=== PATIENT | female | born 1975 | race Caucasian/White ===

== ENCOUNTER → 2016-08-16 | Outpatient (CLI) | payer OTHER ==
[~2016-08-16] VITALS: Ht 165.1 cm; Wt 75.8 kg
[~2016-08-16] MED LIST: ANXIETY MED; ATARAX,VISTARIL50 MG PO; BACTRIM,SEPT1 TABLET PO; CLEOCIN HCL150 MG PO; CLINDAMYCIN; NOHOMEMEDS; NORCO 5/3251 TABLET PO; PEPCID20 MG PO; PREDNISONE; PREDNISONE20 MG PO; PROMETHAZINE HC25 M1 PO; ZOFRAN ODT4 MG PO
[2016-08-16 11:38] VITALS: BP 134/69
== END | disposition home or self-care (01) ==
LOC: IVINF 11:26
DX: O36.0990 Maternal care for other rhesus isoimmunization, unspecified trimester, not applicable or unspecified (principal); Z3A.00 Weeks of gestation of pregnancy not specified; Z88.0 Allergy status to penicillin; Z88.3 Allergy status to other anti-infective agents
CPT/HCPCS: 96372; J2790

== ENCOUNTER 2016-10-02 08:09 | Inpatient (IN) | payer OTHER ==
[~2016-10-02] VITALS: Ht 165.1 cm; Wt 82.7 kg
[2016-10-02] VITALS (17 sets, daily range): BP systolic 108–139; BP diastolic 54–83
[2016-10-02 10:02] LABS: EOSINOPHIL (%) 2.2 % (0-5); EOSINOPHIL COUNT 0.3 K/uL (0-0.3); HEMATOCRIT 38.7 % (36.0-46.0); IMMATURE GRANULOCYTE (%) 0.8 % (0.0-0.7); LYMPHOCYTE COUNT 2.4 K/uL (1.0-2.8); MCH 33.5 PG (29.0-34.0); MCHC 34.1 G/DL (30.0-36.0); MCV 98.2 FL (83-99); MEAN PLAT.VOLUME 11.6 uM^3 (9.5-12.4); MONOCYTE (%) 6.2 % (3-12); MONOCYTE COUNT 0.8 K/uL (0-0.8); NEUTROPHIL (%) 71.9 % (45-76); NEUTROPHIL COUNT 9.3 K/uL (1.8-6.4); PLATELET COUNT 137 K/uL (156-360); RBC DIS.WIDTH-CV 13.1 % (11.8-14.6); RBC DIS.WIDTH-SD 45.3 % (39-53); RED BLOOD COUNT 3.94 M/uL (3.80-5.20); WHITE BLOOD COUNT 12.9 K/uL (4.1-10.2)
[2016-10-02] MEDS ORDERED: BUSPAR5 MG PO (10:32)
[2016-10-02] MEDS ORDERED: TYLENOL SINUS1 EA16 PO (10:33)
[2016-10-02] MEDS ORDERED: TYLENOL EXTRA500 MG PO (10:34)
[2016-10-03] VITALS (7 sets, daily range): BP systolic 108–161; BP diastolic 56–76
== END 2016-10-03 10:55 | disposition home or self-care (01) | DRG 775 ==
LOC: LDRP-OP → 2WEST 08:10 → LDRP-OP 10-28 12:47
PROVIDERS: Advanced Practice Midwife
PROC: 10E0XZZ Delivery of Products of Conception, External Approach (ICD-10-PCS; principal; 2016-10-02)
PROC: 3E0R3CZ (ICD-10-PCS; principal; 2016-10-02)
PROC: 10907ZC Drainage of Amniotic Fluid, Therapeutic from Products of Conception, Via Natural or Artificial Opening (ICD-10-PCS; principal; 2016-10-02)
PROC: 00HU33Z Insertion of Infusion Device into Spinal Canal, Percutaneous Approach (ICD-10-PCS; principal; 2016-10-02)
DX: O36.5990 Maternal care for other known or suspected poor fetal growth, unspecified trimester, not applicable or unspecified (principal); O99.334 Smoking (tobacco) complicating childbirth; F17.210 Nicotine dependence, cigarettes, uncomplicated; F41.9 Anxiety disorder, unspecified; O99.344 Other mental disorders complicating childbirth; Z3A.37 37 weeks gestation of pregnancy; Z37.0 Single live birth
CPT/HCPCS: 85025; 88307; C1755; J0595; J7120

== ENCOUNTER 2017-03-05 11:09 | Emergency (ER) | payer OTHER ==
[~2017-03-05] VITALS: Ht 162.6 cm; Wt 77.7 kg
[~2017-03-05 11:09] MED LIST changes: +BUSPAR5 MG PO; +TYLENOL EXTRA500 MG PO; +TYLENOL SINUS1 EA16 PO
[2017-03-05 12:08] LABS: MCH 33.3 PG (29.0-34.0); MCHC 33.3 G/DL (30.0-36.0); MEAN PLAT.VOLUME 11.1 uM^3 (9.5-12.4); PLATELET COUNT 179 K/uL (156-360); RBC DIS.WIDTH-CV 12.6 % (11.8-14.6); RBC DIS.WIDTH-SD 46.7 % (39-53); WHITE BLOOD COUNT 9.1 K/uL (4.1-10.2)
[2017-03-05 12:17] LABS: CHLORIDE 104 mEq/L (99-109); SODIUM 141 mEq/L (136-147)
[2017-03-05 12:19] LABS: GLUCOSE 91 mg/dL (70-99)
[2017-03-05 12:20] LABS: ANION GAP 11 MEQ/L (2-14)
[2017-03-05 12:21] LABS: TOTAL BILIRUBIN 0.3 mg/dL (0.0-1.0)
[2017-03-05 12:22] LABS: ALKALINE PHOSPHATASE 50 IU/L (3-129)
[2017-03-05 12:23] LABS: GFR ESTIMATE (CALCULATED) > 59 mL/min/
[2017-03-05 12:24] LABS: UREA NITROGEN (BUN) 8 mg/dL (9-23)
[2017-03-05 12:32] LABS: QUANTITATIVE HCG < 4.0 MIU/ML
[2017-03-05 13:08] LABS: ADD MIUA? YES; BILIRUBIN NEGATIVE; BLOOD NEGATIVE; COLOR YELLOW ((YELLOW)); GLUCOSE (STRIP) NEGATIVE; KETONES NEGATIVE; LEUKOCYTES SMALL; NITRITE NEGATIVE; PROTEIN (STRIP) 30; SPECIFIC GRAVITY 1.016 (1.000-1.030); UROBILINOGEN 0.2 MG/DL (0.2-1.0)
[2017-03-05 13:12] LABS: BACTERIA RARE /HPF; EPITHELIAL CELLS 4+ /HPF; MUCUS TRACE /LPF; UCUL ADDED? NO
[2017-03-05] MEDS ORDERED: BACTRIM,SEPT1 TABLET PO (15:57)
[2017-03-05 16:38] VITALS: BP 153/82
== END 2017-03-05 16:39 | disposition home or self-care (01) ==
LOC: EME 11:09
DX: N39.0 Urinary tract infection, site not specified (principal); F17.200 Nicotine dependence, unspecified, uncomplicated; F32.9 Major depressive disorder, single episode, unspecified; Z88.6 Allergy status to analgesic agent; Z88.0 Allergy status to penicillin
CPT/HCPCS: 74176; 80053; 81003; 84702; 85027; 99281; 99284

== ENCOUNTER 2017-03-11 09:16 | Emergency (ER) | payer OTHER ==
[~2017-03-11] VITALS: Ht 162.6 cm; Wt 76.6 kg
[2017-03-11 09:59] LABS: ADD MIUA? NO; BILIRUBIN NEGATIVE; BLOOD NEGATIVE; COLOR YELLOW ((YELLOW)); GLUCOSE (STRIP) NEGATIVE; KETONES NEGATIVE; LEUKOCYTES NEGATIVE; NITRITE NEGATIVE; PROTEIN (STRIP) NEGATIVE; SPECIFIC GRAVITY 1.017 (1.000-1.030); UCUL ADDED? NO; UROBILINOGEN 0.2 MG/DL (0.2-1.0)
[2017-03-11 10:21] LABS: EOSINOPHIL (%) 3.7 % (0-5); EOSINOPHIL COUNT 0.4 K/uL (0-0.3); HEMATOCRIT 41.6 % (36.0-46.0); IMMATURE GRANULOCYTE (%) 0.3 % (0.0-0.7); INSTRUMENT ABS NEUTROPHIL CT 6.2 K/uL; LYMPHOCYTE COUNT 2.4 K/uL (1.0-2.8); MCH 33.3 PG (29.0-34.0); MCHC 34.1 G/DL (30.0-36.0); MCV 97.4 FL (83-99); MEAN PLAT.VOLUME 10.6 uM^3 (9.5-12.4); MONOCYTE (%) 7.4 % (3-12); MONOCYTE COUNT 0.7 K/uL (0-0.8); NEUTROPHIL (%) 63.4 % (45-76); NEUTROPHIL COUNT 6.2 K/uL (1.8-6.4); PLATELET COUNT 186 K/uL (156-360); RBC DIS.WIDTH-CV 12.7 % (11.8-14.6); RBC DIS.WIDTH-SD 45.6 % (39-53); RED BLOOD COUNT 4.27 M/uL (3.80-5.20); WHITE BLOOD COUNT 9.7 K/uL (4.1-10.2)
[2017-03-11 10:31] LABS: CHLORIDE 104 mEq/L (99-109); POTASSIUM 4.2 mEq/L (3.7-5.4); SODIUM 135 mEq/L (136-147)
[2017-03-11 10:33] LABS: GLUCOSE 101 mg/dL (70-99)
[2017-03-11 10:34] LABS: ANION GAP 8 MEQ/L (2-14)
[2017-03-11 10:37] LABS: GFR ESTIMATE (CALCULATED) > 59 mL/min/
[2017-03-11 10:38] LABS: UREA NITROGEN (BUN) 13 mg/dL (9-23)
[2017-03-11] MEDS ORDERED: TYLENOL WITH C1 EACH PO (12:36)
[2017-03-11 12:52] VITALS: BP 100/80
== END 2017-03-11 12:53 | disposition home or self-care (01) ==
LOC: EME 09:16
PROVIDERS: Emergency Medicine
DX: R10.30 Lower abdominal pain, unspecified (principal); F17.200 Nicotine dependence, unspecified, uncomplicated
CPT/HCPCS: 80048; 81003; 85025; 99281; 99283

== ENCOUNTER 2017-07-27 09:13 | Emergency (ER) | payer OTHER ==
[~2017-07-27] VITALS: Ht 165.1 cm; Wt 78.3 kg
[~2017-07-27 09:13] MED LIST changes: +TYLENOL WITH C1 EACH PO
[2017-07-27 11:17] LABS: EOSINOPHIL (%) 0 % (0-5); HEMATOCRIT 42.6 % (36.0-46.0); IMMATURE GRANULOCYTE COUNT 0.1 K/uL; INSTRUMENT ABS NEUTROPHIL CT 10.5 K/uL; LYMPHOCYTE COUNT 1.8 K/uL (1.0-2.8); MCH 34.3 PG (29.0-34.0); MCV 100.7 FL (83-99); MEAN PLAT.VOLUME 10.6 uM^3 (9.5-12.4); MONOCYTE (%) 3.4 % (3-12); MONOCYTE COUNT 0.4 K/uL (0-0.8); NEUTROPHIL (%) 81.6 % (45-76); NEUTROPHIL COUNT 10.5 K/uL (1.8-6.4); NRBC (%) 0.2 /100 WBC (0-0); PLATELET COUNT 216 K/uL (156-360); RBC DIS.WIDTH-CV 12.6 % (11.8-14.6); RBC DIS.WIDTH-SD 47.5 % (39-53); RED BLOOD COUNT 4.23 M/uL (3.80-5.20); WHITE BLOOD COUNT 12.8 K/uL (4.1-10.2)
[2017-07-27 11:44] LABS: ANION GAP 8 MEQ/L (2-14); CHLORIDE 103 MEQ/L (99-109); POTASSIUM 3.7 MEQ/L (3.7-5.4); SAMPLE HEMOLYSIS CHECK 0; SAMPLE ICTERIC CHECK 0; SAMPLE LIPEMIA CHECK 0; SODIUM 138 MEQ/L (136-147); TOTAL BILIRUBIN 0.4 MG/DL (0.0-1.0)
[2017-07-27 11:49] LABS: ALKALINE PHOSPHATASE 45 IU/L (3-129); GFR ESTIMATE (CALCULATED) > 59 mL/min/; GLUCOSE 127 mg/dL (70-99); UREA NITROGEN (BUN) 11 mg/dL (9-23)
[2017-07-27] MEDS ORDERED: PEPCID40 MG PO (12:40)
[2017-07-27] MEDS ORDERED: ATARAX,VISTARIL25 MG PO (12:40)
[2017-07-27] MEDS ORDERED: PREDNISONE20 MG PO (12:40)
[2017-07-27] MEDS ORDERED: PROVENTIL HFA6.7 GM IH (12:43)
[2017-07-27 12:57] VITALS: BP 135/82
== END 2017-07-27 12:59 | disposition home or self-care (01) ==
LOC: EME 09:13
PROVIDERS: Physician Assistant
DX: L51.8 Other erythema multiforme (principal); L27.0 Generalized skin eruption due to drugs and medicaments taken internally; T39.095A Adverse effect of salicylates, initial encounter; R06.02 Shortness of breath; R11.0 Nausea; F17.200 Nicotine dependence, unspecified, uncomplicated; Z71.6 Tobacco abuse counseling
CPT/HCPCS: 71020; 80053; 85025; 94640; 99281; 99284; J1200; J2930; S0028

== ENCOUNTER 2018-02-17 05:24 | Emergency (ER) | payer OTHER ==
[~2018-02-17] VITALS: Ht 162.6 cm; Wt 78.2 kg
[~2018-02-17 05:24] MED LIST changes: +ATARAX,VISTARIL25 MG PO; +PEPCID40 MG PO; +PROVENTIL HFA6.7 GM IH
[2018-02-17 06:27] LABS: HEMATOCRIT 38.3 % (36.0-46.0); MCH 34.2 PG (29.0-34.0); MCHC 33.9 G/DL (30.0-36.0); MCV 100.8 FL (83-99); PLATELET COUNT 191 K/uL (156-360); RBC DIS.WIDTH-SD 44.7 % (39-53); WHITE BLOOD COUNT 10.7 K/uL (4.1-10.2)
[2018-02-17 06:38] LABS: CHLORIDE 106 mEq/L (99-109); POTASSIUM 4.2 mEq/L (3.7-5.4); SODIUM 138 mEq/L (136-147)
[2018-02-17 06:40] LABS: GLUCOSE 104 mg/dL (70-99); TOTAL PROTEIN 6.4 g/dL (6.4-8.3)
[2018-02-17 06:42] LABS: TOTAL BILIRUBIN < 0.1 mg/dL (0.0-1.0)
[2018-02-17 06:43] LABS: ALKALINE PHOSPHATASE 55 IU/L (3-129)
[2018-02-17 06:44] LABS: CREATININE 0.8 mg/dL (0.6-1.3); GFR ESTIMATE (CALCULATED) > 59 mL/min/
[2018-02-17 06:45] LABS: AST (GOT) 12 IU/L (2-34); UREA NITROGEN (BUN) 7 mg/dL (9-23)
[2018-02-17 06:46] LABS: ALT (GPT) 7 IU/L (3-49)
[2018-02-17 06:50] LABS: APPEARANCE SL.HAZY ((CLEAR)); BILIRUBIN NEGATIVE; BLOOD NEGATIVE; COLOR YELLOW ((YELLOW)); GLUCOSE (STRIP) NEGATIVE; KETONES NEGATIVE; LEUKOCYTES NEGATIVE; NITRITE POSITIVE; PROTEIN (STRIP) NEGATIVE; SPECIFIC GRAVITY 1.018 (1.000-1.030); UROBILINOGEN 0.2 MG/DL (0.2-1.0)
[2018-02-17 06:52] LABS: BACTERIA RARE /HPF; EPITHELIAL CELLS RARE /HPF; MUCUS TRACE /LPF; RED BLOOD CELLS 0-5 /HPF (0-5); UCUL ADDED? NO; WHITE BLOOD CELLS 0-5 /HPF (0-5)
[2018-02-17 06:52] LABS: QUANTITATIVE HCG < 4.0 MIU/ML
[2018-02-17] MEDS ORDERED: LEVAQUIN750 MG PO (07:55)
[2018-02-17] MEDS ORDERED: ZOFRAN4 MG PO (07:55)
[2018-02-17 08:26] VITALS: BP 129/78
== END 2018-02-17 08:29 | disposition home or self-care (01) ==
LOC: EME → EDBD 05:24 → EME 08:29
DX: N39.0 Urinary tract infection, site not specified (principal); R11.2 Nausea with vomiting, unspecified; F32.9 Major depressive disorder, single episode, unspecified; Z88.6 Allergy status to analgesic agent; Z88.0 Allergy status to penicillin; F17.200 Nicotine dependence, unspecified, uncomplicated
CPT/HCPCS: 80053; 81003; 84702; 85027; 99281; 99285; J1956; J2405; J7030